=== PATIENT | male | born 1955 | race Caucasian/White ===

== ENCOUNTER 2018-01-08 17:30 | Emergency (ER) | payer SELFPAY ==
[~2018-01-08] VITALS: Ht 172.7 cm; Wt 73.9 kg
[2018-01-08 17:39] VITALS: Ht 172.7 cm; Wt 73.9 kg
[2018-01-08 18:20] LABS: BASOPHIL % 0.3 % (0-2); PLATELET COUNT 167 x10^3mcL (130-400); RED CELL DISTRIBUTION WIDTH 12.2 % (11.5-14.5)
[2018-01-08 18:35] LABS: ALKALINE PHOSPHATASE 168 U/L (46-116); ALT/SGPT 163 U/L (16-63); AST/SGOT 85 U/L (15-37); BILIRUBIN TOTAL 0.7 mg/dL (0.20-1.00); CALCIUM 8.8 mg/dL (8.5-10.1); CHLORIDE SERUM 93 mmol/L (98-107); CREATININE SERUM 1.2 mg/dL (0.7-1.3); GFR1 > 60 mL/min; LIPASE 169 IU/L (73-393); POTASSIUM SERUM 4.3 mmol/L (3.5-5.1); SODIUM SERUM 130 mmol/L (136-145); TOTAL PROTEIN, SERUM 7.5 g/dL (6.4-8.2)
[2018-01-08 18:37] LABS: ALBUMIN 3.3 g/dL (3.4-5.0)
[2018-01-08 18:38] LABS: GLUCOSE SERUM 497 mg/dL (74-106)
[2018-01-08 20:32] VITALS: BP 145/104
== END 2018-01-08 20:32 | disposition home or self-care (01) ==
LOC: ED 17:30
PROVIDERS: Emergency Medicine
DX: Z91.19 Patient's noncompliance with other medical treatment and regimen (principal); E11.65 Type 2 diabetes mellitus with hyperglycemia; E86.0 Dehydration; I10 Essential (primary) hypertension
CPT/HCPCS: 82962; J7030